=== PATIENT | male | born 1930 | race Caucasian/White ===

== ENCOUNTER → 2018-06-30 | Outpatient (CLI) | payer MEDICARE ==
[2018-06-30 16:27] LABS: HCT 43.8 % (39.0-53.0); HGB 14.3 gm/dL (13.0-17.5); MCH 29.5 pg (25.0-35.0); MCHC 32.7 g/dL (31.0-37.0); MCV 90.4 fL (80.0-100.0); Mean Platelet Volume 6.5; Platelet Count 112 k/uL (150-450); RBC 4.84 m/uL (4.30-5.90); RDW 13.3 % (11.5-15.5); WBC 5.9 k/uL (3.8-10.6)
[2018-06-30 16:30] LABS: Appearance,Urine Clear (Clear); Bilirubin,Urine Negative (Negative); Blood,Urine Negative (Negative); Color,Urine Yellow; Glucose,Urine (UA) Negative (Negative); Ketones,Urine Negative (Negative); Leukocyte Esterase,Urine Negative (Negative); Nitrite,Urine Negative (Negative); PH, Urine 6.5 (5.0-8.0); Protein,Urine Negative (Negative); Urobilinogen,Urine <2.0 mg/dL (<2.0)
[2018-06-30 16:33] LABS: INR 1.1 (<1.2); Partial Thromboplastin Time 24.9 sec (22.0-30.0); Prothrombin Time 10.7 sec (9.0-12.0)
[2018-06-30 16:38] LABS: Albumin 4.1 g/dL (3.5-5.0); Total Bilirubin 1.1 mg/dL (0.2-1.3); Total Protein 7.6 g/dL (6.3-8.2)
== END | disposition home or self-care (01) ==
LOC: LABPAT 15:45
PROVIDERS: ATTEND Orthopaedic Surgery
DX: Z01.818 Encounter for other preprocedural examination (principal); Z01.812 Encounter for preprocedural laboratory examination; Z79.01 Long term (current) use of anticoagulants
CPT/HCPCS: 36415; 80053; 81003; 85027; 85610; 85730; 87070; 93005

== ENCOUNTER 2018-07-13 06:05 | Inpatient (IN) | payer MEDICARE ==
[2018-07-01 09:59] VITALS: BMI 30.7
[~2018-07-13 06:05] MED LIST: ACETAMINOPHEN TAB 500 MG TAB PO ONE; HYDROmorphone 0.5 MG/0.5 ML SYRINGE IVP PRN; MELOXICAM 7.5 MG TAB PO ONE; MIDAZOLAM 2 MG/2 ML VIAL IV PRN; ONDANSETRON 4 MG/2 ML VIAL IVP ONE; Pre Op ABX Message 1 EACH MISC MISCELLANE ONE; ROPIVACAINE 246.25 MG, EPINEPHrine 0.5 MG, KETOROLAC 30 MG, cloNIDine HCL/PF 80 MCG, WA... MISCELLANE ONE; TRANEXAMIC ACID 1,000 MG in SODIUM CHLORIDE 0.9% 50 ML IVPB ONE
[2018-07-13] MEDS: LACTATED RINGERS 1,000 ML IV SCH (06:40)
[2018-07-13] MEDS ORDERED: ONDANSETRON 4 MG/2 ML VIAL IVP PRN (06:57)
[2018-07-13] MEDS ORDERED: MAGNESIUM HYDROXIDE 2,400 MG/10 ML CUP PO PRN (06:57)
[2018-07-13] MEDS ORDERED: DIAZEPAM 5 MG TAB PO PRN (06:57)
[2018-07-13] MEDS ORDERED: NALOXONE 0.4 MG/ML 1 ML VIAL IV PRN (06:57)
[2018-07-13] MEDS ORDERED: HYDROcodone/APAP 5-325MG 1 EACH TAB PO PRN ×2 (06:57)
[2018-07-13] MEDS ORDERED: BISACODYL 10 MG SUPP RECTAL PRN (06:57)
[2018-07-13] MEDS ORDERED: NA PHOS,M-B/NA PHOS,DI-BA 133 ML ENEMA RECTAL PRN (06:57)
[2018-07-13] MEDS ORDERED: HYDROmorphone 1 MG/ML 1 ML SYRINGE IVP PRN ×3 (06:57)
[2018-07-13] MEDS ORDERED: diphenhydrAMINE 50 MG/ML 1 ML VIAL ONE (07:09)
[2018-07-13] MEDS ORDERED: fentaNYL (PF) 50 MCG/ML 2 ML AMP ONE (07:09)
[2018-07-13] MEDS ORDERED: SODIUM CHLORIDE 0.9% 100 ML BAG ONE (07:09)
[2018-07-13] MEDS ORDERED: MIDAZOLAM 2 MG/2 ML VIAL ONE (07:09)
[2018-07-13] MEDS ORDERED: TRANEXAMIC ACID 1,000 MG/10 ML VIAL ONE (07:09)
[2018-07-13] MEDS ORDERED: ceFAZolin 1,000 MG VIAL IVPB ONE (07:28)
[2018-07-13] MEDS ORDERED: ceFAZolin 3,000 MG in SODIUM CHLORIDE 0.9% IRRIGATIO 3,000 ML IRRIGATION ONE (07:43)
--- NOTE | 2018-07-13 08:29 | P.OP ---
Date of Procedure: 07/13/18 Preoperative Diagnosis: Polyethylene failure right total knee Postoperative Diagnosis: Polyethylene failure right total knee Procedure(s) Performed: Revision right total knee with polyethylene exchange Implants: [place] Dur[place] large 9 mm AP lipped tibial insert Anesthesia: spinal Surgeon: Yuniel Lizama Manager Intensive Care #1: Winter Crockett Estimated Blood Loss (ml): 50 Pathology: other (Cultures 2) Condition: stable Disposition: PACU Indications for Procedure: This is an 88-year-old gentleman that has had a right total knee arthroplasty performed at another hospital approximately 17 years ago. X-rays demonstrate polyethylene wear patient is a potential pain and effusion secondary to this polyethylene wear. After discussing the surgical nonsurgical treatment options with him and his family at length, I recommended a revision of his total knee with polyethylene exchange. Informed consent was obtained. Operative Findings: The operative findings are consistent with significant polyethylene failure of the tibial component. 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 There is no evidence of infection. Description of Procedure: Patient was seen in the preoperative area consent was reviewed and operative site was marked with a skin marker. An adductor canal pain catheter was placed by anesthesia in the preoperative area. Patient was then brought to the operating room and given preoperative antibiotics intravenously. A spinal anesthetic was administered by the anesthesia department. A tourniquet was placed on the upper thigh and the lower extremity was prepped and draped in usual sterile fashion. A gram of transexamic acid was given. A universal timeout was then performed which confirmed the patient's name, surgical site, ALLERGIES, and consent. The lower extremity was then exsanguinated and tourniquet was inflated to 250 mmHg. A standard and anterior midline approach to the knee was performed. The skin and subcutaneous tissue was dissected down to the patellar tendon, with the prior scar being excised.. A medial parapatellar arthrotomy was then performed. A large effusion was encountered, which was clear and yellow in appearance. This was cultured 2. The knee was then extended, the patellar was everted, and the knee was again flexed. There is noted to be a large amount of black staining of the synovium, consistent with significant metallosis. There is also multiple pieces of polyethylene floating about the knee. Using a Rominger, a large synovectomy was performed to remove all of the black stained metallosis. Attention was then directed to the tibia. Using a small osteotome, the polyethylene was easily removed from the tibial component. On inspection, the polyethylene was found to be extensively damaged completely worn and the posterior condyle area. Next, the femoral tibial components were inspected and found to be well fixed. The patellar component was also inspected, found have some moderate polyethylene wear, but the component was well fixed left in place. The trial 9 mm insert was then placed, and the knee was then taken through range of motion and found to be stable. The trial was then removed. After a thorough debridement of the synovium, the knee was then irrigated with pulsatile lavage. The posterior structures were injected with the ropivacaine solution. The knee was also irrigated with Irrisept solution. The component was then opened. A new polyethylene was then inserted into the tibial component and component locking was confirmed. The remaining soft tissues were then injected with a ropivacaine solution, which consisted of 246.25 mg of ropivacaine, 0.5 mg of epinephrine, 30 mg of Toradol, 80 g of clonidine, and 48.45 mL of sterile water, for a total of 100 mL of fluid injected. After the cemented hardened. The tourniquet was released, and hemostasis was obtained. A second gram of transexamic acid was given. The knee was again irrigated. The knee was again taken through range of motion and found to be stable throughout all range of motion of 0-130, and the patella tracked normally. The fascia was then closed with #2 strata fix suture. The subcutaneous tissue was closed with 3-0 Vicryl and 3-0 strata fix. Dermabond glue was used for the skin and placed with the knee in flexion. The patient was placed in a sterile silver dressing. Patient was then transferred to recovery room in stable condition. The assistant restaurant general manager STORM Castellano was required due the complexity surgery and the need for a skilled surgical instrument maker. She assisted in positioning, draping, retraction, and closure of the wound.
[2018-07-13] MEDS ORDERED: ROPIVACAINE 1,100 MG, SODIUM CHLORIDE 0.9% 330 ML MISCELLANE PRN ×2 (08:44)
--- NOTE | 2018-07-13 09:25 | XR ---
Right knee Limited HISTORY: Status post right knee arthroplasty 2 views of the right knee Correlation to prior exam 07/11/2018 There is a metallic density which is needle-like just inferior to the patella on the lateral exam ritika suring 1 cm x 1 mm, not localized on the frontal exam. Frontal view is rotated. Alignment appears sat isfactory status post knee arthroplasty. Lucency in the soft tissues compatible with postop state. Th ere are vascular calcifications present. Small ossific densities present in the suprapatellar locatio n are noted. Bone mineralization is reduced. There may be a Simmons's cyst, soft tissue prominence in t he popliteal fossa. IMPRESSION: Orthopedic follow-up. Foreign body as described inferior to the patella. Results relayed to Winter telephonically at the time of interpretation. Additional findings above. A Yellow level critical message alert has been initiated for Bibiana Duarte DO via the [employer] Critical Results System on 07/13/2018 9:18 AM. This message alert has been sent to Bibiana abraham DO via the preferences provided by the clinician for the receipt of Radiology Critical Findings. Message ID [id number].
[2018-07-13] MEDS: SODIUM CHLORIDE 0.9% 1,000 ML IV SCH ×3 (09:34→18:07)
--- NOTE | 2018-07-13 11:41 | P.CONS ---
History of Present Illness - Reason for Consult Consult date: 07/13/18 Medical management Requesting physician: Yuniel Lizama - Chief Complaint Medical management - History of Present Illness The patient is a 88-year-old male with a past medical history of essential hypertension, chronic kidney disease, congestive heart failure unknown type, chronic atrial fibrillation previously on anticoagulation was currently admitted to the orthopedic service under Dr. Lizama and is currently postop day #0 status post revision of right total knee with polyethylene exchange secondary to polyethylene failure. Patient is doing well , denies any chest pain or shortness of breath. Reports that he stopped his eliquis7 days prior to having his surgery done today. Patient reports his pain is adequately controlled, plans to go home with his son. Review of Systems Pertinent positives per HPI, all other review of systems are negative Past Medical History Past Medical History: Atrial Fibrillation, Coronary Artery Disease (CAD), Cancer , Heart Failure, GERD/Reflux, Hearing Disorder / Deafness, Hypertension, Liver Disease, Osteoarthritis (OA), Prostate Disorder Additional Past Medical History / Comment(s): HX KIDNEY, PROSTATE, SKIN CANCERS. HEPATITIS, TREATED. SHORT OF BREATH W/ ACTIVITY. RT TOTAL KNEE PROBLEMS. EDEMA LEGS. HAD RECENT STRESS TEST, TO HAVE PULMONARY TESTING PRE- OP. History of Any Multi-Drug Resistant Organisms: None Reported Past Surgical History: Appendectomy, Heart Catheterization With Stent, Joint Replacement, Orthopedic Surgery, Prostate Surgery Additional Past Surgical History / Comment(s): Stent placed in right ventricle approximately 15 years ago. Right kidney removed around 1981. FREDRICK TOTAL KNEES. CATARACTS REMOVED. LOOP MONITOR. TOE JOINT REPLACED. Past Anesthesia/Blood Transfusion Reactions: No Reported Reaction Date of Last Stent Placement:: 2002 Past Psychological History: No Psychological Hx Reported Smoking Status: Never smoker Past Alcohol Use History: None Reported Past Drug Use History: None Reported - Past Family History Father Family Medical History: Cancer Brother(s) Family Medical History: Cancer Medications and Allergies Home Medications Medication Instructions Recorded Confirmed Type Apixaban [Eliquis] 2.5 mg PO BID 08/16/16 07/13/18 History Isosorbide Dinitrate [Isordil] 10 mg PO AC-TID 08/16/16 07/13/18 History Lactulose 20 gm PO Q6H 08/16/16 07/13/18 History Nystatin 100,000 Unit/ml Susp 5 ml PO Q6H PRN 08/16/16 07/13/18 History [Mycostatin Oral Susp] Sennosides [Senna] 8.6 mg PO BID 08/16/16 07/13/18 History Tamsulosin [Flomax] 0.4 mg PO DAILY 08/16/16 07/13/18 History hydrALAZINE HCL [Apresoline] 25 mg PO TID #0 08/18/16 07/13/18 Rx Diltiazem HCl [Diltiazem 24Hr ER] 120 mg PO DAILY 07/01/18 07/13/18 History Fluticasone Propionate [Flonase 1 spray EA NOSTRIL DAILY 07/01/18 07/13/18 History Allergy Relief] Furosemide [Lasix] 40 mg PO BID 07/01/18 07/13/18 History Lisinopril [Zestril] 10 mg PO BID 07/01/18 07/13/18 History Metoprolol Succinate (ER) [Toprol 100 mg PO DAILY 07/01/18 07/13/18 History Xl] Potassium Chloride ER [K-Dur 20] 20 meq PO BID 07/01/18 07/13/18 History Aspirin 81 mg PO DAILY 07/13/18 07/13/18 History Allergies Allergy/AdvReac Type Severity Reaction Status Date / Time ciprofloxacin [From Cipro] Allergy Unknown Verified 07/13/18 11:20 Penicillins Allergy Unknown Verified 07/13/18 11:20 Physical Exam Vitals: Vital Signs Temp Pulse Pulse Resp BP BP Pulse Ox 07/13/18 09:23 81 16 95/52 98 07/13/18 09:08 98.0 F 83 16 94/62 98 07/13/18 08:53 83 16 97/50 97 07/13/18 08:38 98.0 F 82 16 94/53 95 07/13/18 07:02 87 16 101/56 95 07/13/18 06:23 97.9 F 102 H 16 122/58 98 Intake and Output 07/12/18 07/13/18 07/13/18 22:59 06:59 14:59 Intake Total 200 701 Output Total 290 Balance 200 411 Intake: IV 200 701 Output: Urine 240 Estimated Blood Loss 50 Other: # Voids 1 Weight 99.79 kg Constitutional: No acute distress, conversant, pleasant Eyes: Anicteric sclerae, moist conjunctiva, no lid-lag, PERRLA ENMT: NC/AT,Oropharynx clear, no erythema, exudates Neck:Supple, FROM, no masses, or JVD, No carotid bruits; No thyromegaly Lungs: Clear to auscultation, Clear to percussion, Normal respiratory effort, no accessory muscle use Cardiovascular: Irregularly irregular No murmurs, gallops, or rubs no peripheral edema Abdominal: Soft Nontender, nom distended, no guarding, no rebound or rigidity, Normoactive bowel sounds No hepatomegaly, No splenomegaly, No palpable mass No abdominal wall hernia noted Skin: Normal temperature, tone, texture, turgor, No induration No subcutaneous nodules, No rash, lesions, No ulcers Extremities:No digital cyanosis No clubbing, Pedal pulses intact and symmetrical Radial pulses intact and symmetrical Normal gait and station, No calf tenderness Psychiatric: Alert and oriented to person, place and time, Appropriate affect Intact judgement Neuro: Muscles Strength 5/5 in all 4 extremities, Sensation to light touch grossly present throughout, Cranial nerves II-XII grossly intact. No focal sensory deficits Assessment and Plan (1) CAD (coronary artery disease) Current Visit: No Status: Acute Code(s): I25.10 - ATHSCL HEART DISEASE OF [place] CORONARY ARTERY W/O ANG PCTRS SNOMED Code(s): 02362630 (2) Chronic atrial fibrillation Current Visit: No Status: Acute Code(s): I48.2 - CHRONIC ATRIAL FIBRILLATION SNOMED Code(s): 585695944 (3) HTN (hypertension) Current Visit: No Status: Acute Code(s): I10 - ESSENTIAL (PRIMARY) HYPERTENSION SNOMED Code(s): 60591575 (4) Congestive heart failure (CHF) Current Visit: Yes Status: Acute Code(s): I50.9 - HEART FAILURE, UNSPECIFIED SNOMED Code(s): 06147120 Plan: The patient is admitted to the orthopedic service postop day #0 after having a total knee revision with exchange of polyethylene secondary to failure. Patient appears medically stable we'll resume all his home medications, patient has a history of chronic A. fib and was previously on anticoagulation with eliquis which was held preoperatively, plan to resume anticoagulation later today and continue to follow his clinical. Patient is clinically euvolemic without any indications of CHF exacerbation at this point Anticipated discharge 1-2 days
[2018-07-13] MEDS ORDERED: NYSTATIN 100,000 UNIT/ML SUSP 500,000 UNIT/5 ML CUP PO PRN (11:45)
[2018-07-13] MEDS ORDERED: CLINDAMYCIN 900 MG in DEXTROSE 5% IN WATER 50 ML IVPB SCH ×2 (12:00)
[2018-07-13] MEDS: LACTULOSE 20 GM/30 ML CUP PO SCH ×2 (12:23→18:07)
[2018-07-13] MEDS: ISOSORBIDE DINITRATE 10 MG TAB PO SCH ×2 (12:23→15:37)
[2018-07-13] MEDS ORDERED: SODIUM CHLORIDE 0.9% 500 ML IV ONE (12:36)
--- NOTE | 2018-07-13 13:51 | P.ONQ ---
Anesthesiology Proc Note - PNB - Peripheral Nerve Block Performed Right Adductor Canal Infusion Time Out Performed: Yes Procedure Start Time: 06:53 Procedure Stop Time: 07:04 Indication: Acute Post-Operative Pain, Requested by physician Sedation Type: Sedate with meaningful contact maintained Preparation: Sterile Dressing Position: Supine Catheter: Indwelling Needle Types: On-Q Needle Size: 50mm (2") Needle Gauge: 21 Technique: Ultrasound Injectate: 0.5% Ropivacaine (see comment for volume) (ropi .5% 20cc) Blood Aspirated: No Pain Paresthesia on Injection Noted: No Resistance on Injection: Normal Events: Uneventful and Well Tolerated
[2018-07-13] MEDS: FUROSEMIDE 40 MG TAB PO SCH (15:37)
[2018-07-13] MEDS: ceFAZolin IN SWFI 2 GM/20 ML SYRINGE IVP SCH (15:50)
[2018-07-13] MEDS: POTASSIUM CHLORIDE ER 20 MEQ TAB.ER PO SCH (20:53)
[2018-07-13] MEDS: SENNOSIDES-DOCUSATE SODIUM 1 EACH TAB PO SCH (20:53)
[2018-07-13] MEDS ORDERED: APIXABAN 2.5 MG TABLET PO SCH (21:00)
[2018-07-14] MEDS: LACTULOSE 20 GM/30 ML CUP PO SCH ×4 (00:14→18:55)
[2018-07-14] MEDS: ceFAZolin IN SWFI 2 GM/20 ML SYRINGE IVP SCH (00:16)
[2018-07-14 02:08] VITALS: RESP 16
--- NOTE | 2018-07-14 05:51 | P.PN ---
Progress Note - Text Progress Note Date: 07/14/18 The patient is doing well status post total knee replacement. The patient got confused overnight and pulled his On-Q catheter out. His pain is 2 out of 10 this morning. You may use Toradol if there is no contraindication for pain control.
[2018-07-14 07:48] LABS: Basophils % (A) 0 %; Eosinophils # (A) 0.1 k/uL (0-0.7); Eosinophils % (A) 1 %; HCT 38.6 % (39.0-53.0); HGB 12.2 gm/dL (13.0-17.5); Lymphocytes # (A) 0.5 k/uL (1.0-4.8); Lymphocytes % (A) 7 %; MCH 28.9 pg (25.0-35.0); MCHC 31.6 g/dL (31.0-37.0); MCV 91.5 fL (80.0-100.0); Mean Platelet Volume 6.9; Monocytes # (A) 0.6 k/uL (0-1.0); Monocytes % (A) 9 %; Neutrophils # (A) 5.9 k/uL (1.3-7.7); Neutrophils % (A) 82 %; Platelet Count 112 k/uL (150-450); RBC 4.22 m/uL (4.30-5.90); RDW 13.3 % (11.5-15.5); WBC 7.2 k/uL (3.8-10.6)
[2018-07-14] MEDS: LACTATED RINGERS 1,000 ML IV SCH (07:48)
--- NOTE | 2018-07-14 09:11 | P.PN ---
Subjective Progress Note Date: 07/14/18 This is an 88-year-old male who is status post revision right total knee arthroplasty with polyethylene exchange. This is postoperative pain #1. Patient is seen and evaluated at bedside with Dr. Yuniel Lizama. Patient states that his pain is very well controlled today. Patient denies any fever/ chills, numbness, weakness, tingling, abdominal pain, shortness of breath or chest pain. Objective - Vital Signs Vital signs: Vital Signs Temp 98.2 F 07/14/18 07:00 Pulse 97 07/14/18 07:00 Resp 16 07/14/18 07:00 BP 134/71 07/14/18 07:00 Pulse Ox 93 L 07/14/18 07:00 Intake & Output 07/13/18 07/14/18 07/14/18 18:59 06:59 18:59 Intake Total 701 Output Total 840 401 Balance -139 -401 Weight 99.79 kg Intake: IV 701 Output: Urine 790 400 Straight 550 400 Stool 1 Estimated Blood Loss 50 Other: # Voids 1 1 - Exam Vital signs are stable. Patient is in no acute distress and is alert and oriented 3. Calf is soft and nontender to palpation. Dressing is clean, dry, and intact. Patient has full foot and ankle motion without pain or difficulty. Neurovascular status and circulatory status are intact. - Labs CBC & Chem 7: 07/14/18 06:48 Labs: Abnormal Lab Results - Last 24 Hours (Table) 07/14/18 Range/Units 06:48 RBC 4.22 L (4.30-5.90) m/uL Hgb 12.2 L (13.0-17.5) gm/dL Hct 38.6 L (39.0-53.0) % Plt Count 112 L (150-450) k/uL Lymphocytes # 0.5 L (1.0-4.8) k/uL Microbiology - Last 24 Hours (Table) 07/13/18 07:51 Gram Stain - Preliminary Knee - Right Wound Culture - Preliminary 07/13/18 07:50 Gram Stain - Preliminary Knee - Right Wound Culture - Preliminary 07/13/18 07:50 Anaerobic Culture - Preliminary Knee - Right 07/13/18 07:51 Anaerobic Culture - Preliminary Knee - Right Assessment and Plan (1) Status post revision of total replacement of right knee Current Visit: Yes Status: Acute Code(s): Z96.651 - PRESENCE OF RIGHT ARTIFICIAL KNEE JOINT SNOMED Code(s): 196203619572588 Plan: #1 Continue with routine postoperative care, leave dressing in place for ten days. #2 Anticoagulation with aspirin. #3 Physical therapy and CPM today. #4 Appreciate input from medicine. #5 Anticipate discharge home with home care likely tomorrow.
[2018-07-14] MEDS: APIXABAN 2.5 MG TABLET PO SCH ×2 (09:32→20:33)
[2018-07-14] MEDS: FUROSEMIDE 40 MG TAB PO SCH ×2 (09:32→16:57)
[2018-07-14] MEDS: METOPROLOL SUCCINATE (ER) 100 MG TAB.ER.24H PO SCH (09:32)
[2018-07-14] MEDS: ASPIRIN 81 MG PO SCH (09:32)
[2018-07-14] MEDS: POTASSIUM CHLORIDE ER 20 MEQ TAB.ER PO SCH ×2 (09:32→20:34)
[2018-07-14] MEDS: hydrALAZINE HCL 25 MG TAB PO SCH ×2 (09:33→09:57)
[2018-07-14] MEDS: LISINOPRIL 10 MG TAB PO SCH ×2 (09:33→20:33)
[2018-07-14] MEDS: TAMSULOSIN 0.4 MG CAP.ER.24H PO SCH (09:33)
[2018-07-14] MEDS: ISOSORBIDE DINITRATE 10 MG TAB PO SCH ×3 (09:58→16:57)
[2018-07-14] MEDS: DILTIAZEM CD 120 MG CAP.ER.24H PO SCH (10:00)
--- NOTE | 2018-07-14 12:38 | P.PN ---
Subjective Progress Note Date: 07/14/18 Patient sitting up at bedside, doing well postop day #1 s/p right total knee replacement with polyethylene exchange, patient had transient episode of confusion pulling at his On Q catheter overnight, likely . Does not appear confused this morning, blood pressure much more stable today. Objective - Vital Signs Vital signs: Vital Signs Temp 98.2 F 07/14/18 07:00 Pulse 97 07/14/18 07:00 Resp 16 07/14/18 07:00 BP 134/71 07/14/18 07:00 Pulse Ox 93 L 07/14/18 07:00 Intake & Output 07/13/18 07/14/18 07/14/18 18:59 06:59 18:59 Intake Total 701 240 Output Total 840 401 Balance -139 -401 240 Weight 99.79 kg Intake: IV 701 Oral 240 Output: Urine 790 400 Straight 550 400 Stool 1 Estimated Blood Loss 50 Other: # Voids 1 1 - Exam Constitutional: No acute distress, conversant, pleasant Eyes: Anicteric sclerae, moist conjunctiva, no lid-lag, PERRLA ENMT: NC/AT,Oropharynx clear, no erythema, exudates Neck:Supple, FROM, no masses, or JVD, No carotid bruits; No thyromegaly Lungs: Clear to auscultation, Clear to percussion, Normal respiratory effort, no accessory muscle use Cardiovascular: Irregularly irregular, No murmurs, gallops, or rubs no peripheral edema Abdominal: Soft Nontender, nom distended, no guarding, no rebound or rigidity, Normoactive bowel sounds No hepatomegaly, No splenomegaly, No palpable mass No abdominal wall hernia noted Skin: Normal temperature, tone, texture, turgor, No induration No subcutaneous nodules, No rash, lesions, No ulcers Extremities:No digital cyanosis No clubbing, Pedal pulses intact and symmetrical Radial pulses intact and symmetrical Normal gait and station, No calf tenderness Psychiatric: Alert and oriented to person, place and time, Appropriate affect Intact judgement Neuro: Muscles Strength 5/5 in all 4 extremities, Sensation to light touch grossly present throughout, Cranial nerves II-XII grossly intact. No focal sensory deficits - Labs CBC & Chem 7: 07/14/18 06:48 Labs: Abnormal Lab Results - Last 24 Hours (Table) 07/14/18 Range/Units 06:48 RBC 4.22 L (4.30-5.90) m/uL Hgb 12.2 L (13.0-17.5) gm/dL Hct 38.6 L (39.0-53.0) % Plt Count 112 L (150-450) k/uL Lymphocytes # 0.5 L (1.0-4.8) k/uL Microbiology - Last 24 Hours (Table) 07/13/18 07:50 Gram Stain - Preliminary Knee - Right Wound Culture - Preliminary 07/13/18 07:51 Gram Stain - Preliminary Knee - Right Wound Culture - Preliminary 07/13/18 07:50 Anaerobic Culture - Preliminary Knee - Right 07/13/18 07:51 Anaerobic Culture - Preliminary Knee - Right Assessment and Plan (1) CAD (coronary artery disease) Narrative/Plan: * Currently stable patient is asymptomatic denies any chest pain or shortness of breath at this time Current Visit: No Status: Acute Code(s): I25.10 - ATHSCL HEART DISEASE OF [place] CORONARY ARTERY W/O ANG PCTRS SNOMED Code(s): 88611466 (2) Chronic atrial fibrillation Narrative/Plan: * Stable A. fib with controlled ventricular rate * Continue current Cardizem, Toprol-XL and Eliquis Current Visit: No Status: Acute Code(s): I48.2 - CHRONIC ATRIAL FIBRILLATION SNOMED Code(s): 134740862 (3) HTN (hypertension) Narrative/Plan: * Patient's blood pressure much better today no longer hypotensive after receiving a liter of fluids * Continue and hypertensive regimen will discontinue hydralazine Current Visit: No Status: Acute Code(s): I10 - ESSENTIAL (PRIMARY) HYPERTENSION SNOMED Code(s): 48175862 (4) Congestive heart failure (CHF) Narrative/Plan: * Stable euvolemic exam without any suspicion of acute exacerbation at this time Current Visit: Yes Status: Acute Code(s): I50.9 - HEART FAILURE, UNSPECIFIED SNOMED Code(s): 61039714 Plan: Patient doing well, appears stable, will defer pain management to primary team. Can likely be discharged home tomorrow. We'll continue to follow with you
[2018-07-14] MEDS ORDERED: HYDROmorphone 2 MG TAB PO PRN ×3 (14:51→14:52)
[2018-07-14] MEDS: SENNOSIDES-DOCUSATE SODIUM 1 EACH TAB PO SCH (20:33)
[2018-07-15] MEDS: LACTULOSE 20 GM/30 ML CUP PO SCH ×3 (00:53→14:49)
[2018-07-15] MEDS: LACTATED RINGERS 1,000 ML IV SCH (05:14)
[2018-07-15] MEDS: SODIUM CHLORIDE 0.9% 1,000 ML IV SCH (05:15)
--- NOTE | 2018-07-15 08:36 | P.DS ---
Providers Date of admission: 07/13/18 06:05 Expected date of discharge: 07/15/18 Attending physician: Yuniel Lizama Consults: 07/13/18 06:57 Consult Physician Routine Consulting Provider: Bibiana Duarte Consult Reason/Comments: medical management Do you want consulting provider notified?: Yes Primary care physician: Physician Nonstaff - Discharge Diagnosis(es) (1) Status post revision of total replacement of right knee Current Visit: Yes Status: Acute Hospital Course: This is a 88-year-old male with a history of right total knee arthroplasty ~17 years ago. The patient presents for evaluation and x-rays show evidence for polyethylene wear. After discussion and consideration patient elects to proceed with revision right total knee arthroplasty with polyethylene exchange. The patient is seen preoperatively by Dr. Lizama and medically cleared for surgery by their primary care physician. Patient is admitted to [facility] on 07/13/2018 for revision right total knee arthroplasty with polyethylene exchange. The procedures performed without complication or sequelae. The patient is doing well postoperatively. Labs and vital signs are stable on day of discharge. On day of discharge patient's knee incision is healing well. There is minimal erythema. There is no drainage noted at this time. There is minimal soft tissue swelling to the knee. Patient has full foot and ankle motion without difficulty or pain. Neurovascular status to the right lower extremity is intact. Patient is discharged home in good condition. Please see med rec for accurate list of home medications. Plan - Discharge Summary Discharge Rx Participant: Yes New Discharge Prescriptions: New Apixaban [Eliquis] 2.5 mg PO BID #30 tab HYDROcodone/APAP 5-325MG [[place] 5-325] 1 - 2 tab PO Q4-6H PRN #84 tab PRN Reason: Pain Sennosides [Senokot] 1 tab PO BID #60 tablet No Action Nystatin 100,000 Unit/ml Susp [Mycostatin Oral Susp] 5 ml PO Q6H PRN PRN Reason: Mouth Irritation Apixaban [Eliquis] 2.5 mg PO BID Isosorbide Dinitrate [Isordil] 10 mg PO AC-TID Tamsulosin [Flomax] 0.4 mg PO DAILY Sennosides [Senna] 8.6 mg PO BID Lactulose 20 gm PO Q6H hydrALAZINE HCL [Apresoline] 25 mg PO TID #0 Diltiazem HCl [Diltiazem 24Hr ER] 120 mg PO DAILY Fluticasone Propionate [Flonase Allergy Relief] 1 spray EA NOSTRIL DAILY Furosemide [Lasix] 40 mg PO BID Lisinopril [Zestril] 10 mg PO BID Metoprolol Succinate (ER) [Toprol Xl] 100 mg PO DAILY Potassium Chloride ER [K-Dur 20] 20 meq PO BID Aspirin 81 mg PO DAILY Discharge Medication List Apixaban [Eliquis] 2.5 mg PO BID 08/16/16 [History] Isosorbide Dinitrate [Isordil] 10 mg PO AC-TID 08/16/16 [History] Lactulose 20 gm PO Q6H 08/16/16 [History] Nystatin 100,000 Unit/ml Susp [Mycostatin Oral Susp] 5 ml PO Q6H PRN 08/16/16 [ History] Sennosides [Senna] 8.6 mg PO BID 08/16/16 [History] Tamsulosin [Flomax] 0.4 mg PO DAILY 08/16/16 [History] hydrALAZINE HCL [Apresoline] 25 mg PO TID #0 08/18/16 [Rx] Diltiazem HCl [Diltiazem 24Hr ER] 120 mg PO DAILY 07/01/18 [History] Fluticasone Propionate [Flonase Allergy Relief] 1 spray EA NOSTRIL DAILY [History] Furosemide [Lasix] 40 mg PO BID 07/01/18 [History] Lisinopril [Zestril] 10 mg PO BID 07/01/18 [History] Metoprolol Succinate (ER) [Toprol Xl] 100 mg PO DAILY 07/01/18 [History] Potassium Chloride ER [K-Dur 20] 20 meq PO BID 07/01/18 [History] Aspirin 81 mg PO DAILY 07/13/18 [History] Apixaban [Eliquis] 2.5 mg PO BID #30 tab 07/15/18 [Rx] HYDROcodone/APAP 5-325MG [[place] 5-325] 1 - 2 tab PO Q4-6H PRN #84 tab 07/15/18 [ Rx] Sennosides [Senokot] 1 tab PO BID #60 tablet 07/15/18 [Rx] Follow up Appointment(s)/Referral(s): [facility], [NON-STAFF] - Yuniel Lizama DO [Doctor of Osteopathic Medicine] - 2 Weeks Ambulatory/Diagnostic Orders: Continuous Passive Motion (CPM) Machine [DME.AMB1] Time Frame: 3 Weeks, Location : None Selected Activity/Diet/Wound Care/Special Instructions: [facility] will be able to transfer services when patient goes home. They will go through the [place] office at that time. Please call [facility] once home to arrange delivery of CPM: [phone] Weightbearing as tolerated with a walker CPM 5-6h daily Leave dressing intact. May be removed by home care nurse in 10 days. May shower with dressing on. Please call [facility] with any questions or concerns, . Discharge Disposition: HOME WITH HOME HEALTH SERVICES
[2018-07-15] MEDS: POTASSIUM CHLORIDE ER 20 MEQ TAB.ER PO SCH (10:13)
[2018-07-15] MEDS: METOPROLOL SUCCINATE (ER) 100 MG TAB.ER.24H PO SCH (10:13)
[2018-07-15] MEDS: APIXABAN 2.5 MG TABLET PO SCH (10:13)
[2018-07-15] MEDS: DILTIAZEM CD 120 MG CAP.ER.24H PO SCH (10:13)
[2018-07-15] MEDS: ISOSORBIDE DINITRATE 10 MG TAB PO SCH ×2 (10:13→15:14)
[2018-07-15] MEDS: ASPIRIN 81 MG PO SCH (10:13)
[2018-07-15] MEDS: LISINOPRIL 10 MG TAB PO SCH (10:13)
[2018-07-15] MEDS: TAMSULOSIN 0.4 MG CAP.ER.24H PO SCH (10:13)
[2018-07-15] MEDS: FUROSEMIDE 40 MG TAB PO SCH ×2 (10:14→15:13)
[2018-07-15 10:17] VITALS: BP 166/91; PULSE 94; TEMP 98.4
--- NOTE | 2018-07-15 12:54 | P.PN ---
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 Patient with no complaints Objective - Vital Signs Vital signs: Vital Signs Temp 98.4 F 07/15/18 07:00 Pulse 94 07/15/18 07:00 Resp 16 07/15/18 07:00 BP 166/91 07/15/18 07:00 Pulse Ox 98 07/15/18 07:00 Intake & Output 07/14/18 07/15/18 07/15/18 18:59 06:59 18:59 Intake Total 240 240 Balance 240 240 Intake: Oral 240 240 Other: Voiding Method Toilet Urinal # Voids 2 2 # Bowel Movements 1 - Exam Constitutional: No acute distress, conversant, pleasant Eyes: Anicteric sclerae, moist conjunctiva, no lid-lag, PERRLA ENMT: NC/AT,Oropharynx clear, no erythema, exudates Neck:Supple, FROM, no masses, or JVD, No carotid bruits; No thyromegaly Lungs: Clear to auscultation, Clear to percussion, Normal respiratory effort, no accessory muscle use Cardiovascular: Irregularly irregular, No murmurs, gallops, or rubs no peripheral edema Abdominal: Soft Nontender, nom distended, no guarding, no rebound or rigidity, Normoactive bowel sounds No hepatomegaly, No splenomegaly, No palpable mass No abdominal wall hernia noted Skin: Normal temperature, tone, texture, turgor, No induration No subcutaneous nodules, No rash, lesions, No ulcers Extremities:No digital cyanosis No clubbing, Pedal pulses intact and symmetrical Radial pulses intact and symmetrical Normal gait and station, No calf tenderness Psychiatric: Alert and oriented to person, place and time, Appropriate affect Intact judgement Neuro: Muscles Strength 5/5 in all 4 extremities, Sensation to light touch grossly present throughout, Cranial nerves II-XII grossly intact. No focal sensory deficits - Labs CBC & Chem 7: 07/14/18 06:48 Labs: Microbiology - Last 24 Hours (Table) 07/13/18 07:50 Gram Stain - Final Knee - Right Wound Culture - Final 07/13/18 07:51 Gram Stain - Final Knee - Right Wound Culture - Final Assessment and Plan (1) CAD (coronary artery disease) Narrative/Plan: * Currently stable patient is asymptomatic denies any chest pain or shortness of breath at this time Current Visit: No Status: Acute Code(s): I25.10 - ATHSCL HEART DISEASE OF [place] CORONARY ARTERY W/O ANG PCTRS SNOMED Code(s): 03357832 (2) Chronic atrial fibrillation Narrative/Plan: * Stable A. fib with controlled ventricular rate * Continue current Cardizem, Toprol-XL and Eliquis Current Visit: No Status: Acute Code(s): I48.2 - CHRONIC ATRIAL FIBRILLATION SNOMED Code(s): 455220973 (3) HTN (hypertension) Narrative/Plan: * Patient's blood pressure much better today no longer hypotensive BP actually more elevated * Continue and hypertensive regimen safe to resume hdralazine on discharge Current Visit: No Status: Acute Code(s): I10 - ESSENTIAL (PRIMARY) HYPERTENSION SNOMED Code(s): 43701786 (4) Congestive heart failure (CHF) Narrative/Plan: * Stable euvolemic exam without any suspicion of acute exacerbation at this time Current Visit: Yes Status: Acute Code(s): I50.9 - HEART FAILURE, UNSPECIFIED SNOMED Code(s): 58276344
[2018-07-15] MEDS ORDERED: hydrALAZINE HCL 25 MG TAB PO SCH (16:00)
== END 2018-07-15 15:46 | disposition home health service (06) | DRG 488 ==
LOC: 2ORMAIN 06:05 → 3SUR 08:29
PROVIDERS: ADMIT Orthopaedic Surgery; ATTEND Orthopaedic Surgery
PROC: 0SUV09Z Supplement Right Knee Joint, Tibial Surface with Liner, Open Approach (ICD-10-PCS; 2018-07-13)
PROC: 0SPC09Z Removal of Liner from Right Knee Joint, Open Approach (ICD-10-PCS; principal; 2018-07-13 07:00)
DX: T84.092A Other mechanical complication of internal right knee prosthesis, initial encounter (principal); F05 Delirium due to known physiological condition; I25.10 Atherosclerotic heart disease of native coronary artery without angina pectoris; I11.0 Hypertensive heart disease with heart failure; I48.2 Chronic atrial fibrillation; I50.9 Heart failure, unspecified; K75.9 Inflammatory liver disease, unspecified; G43.909 Migraine, unspecified, not intractable, without status migrainosus; G40.909 Epilepsy, unspecified, not intractable, without status epilepticus; K21.9 Gastro-esophageal reflux disease without esophagitis; H91.90 Unspecified hearing loss, unspecified ear; Z79.01 Long term (current) use of anticoagulants; Z79.82 Long term (current) use of aspirin; Z79.51 Long term (current) use of inhaled steroids; Z79.899 Other long term (current) drug therapy; Z85.828 Personal history of other malignant neoplasm of skin; Z85.46 Personal history of malignant neoplasm of prostate; Z85.528 Personal history of other malignant neoplasm of kidney; Z95.5 Presence of coronary angioplasty implant and graft; Z90.5 Acquired absence of kidney; Z87.442 Personal history of urinary calculi; Z95.0 Presence of cardiac pacemaker; Z96.652 Presence of left artificial knee joint; Z98.42 Cataract extraction status, left eye; Z98.41 Cataract extraction status, right eye; Z88.1 Allergy status to other antibiotic agents; Z88.0 Allergy status to penicillin
CPT/HCPCS: 85025; 87070; 87075; 87205; 99283

== ENCOUNTER → 2019-09-28 | Outpatient (CLI) | payer MEDICARE ==
[2019-09-28 16:48] LABS: Basophils % (A) 1 %; Eosinophils # (A) 0.1 k/uL (0-0.7); Eosinophils % (A) 2 %; HCT 35.7 % (39.0-53.0); HGB 11.8 gm/dL (13.0-17.5); Lymphocytes # (A) 0.9 k/uL (1.0-4.8); Lymphocytes % (A) 19 %; MCH 26.8 pg (25.0-35.0); MCHC 32.9 g/dL (31.0-37.0); MCV 81.3 fL (80.0-100.0); Monocytes # (A) 0.4 k/uL (0-1.0); Monocytes % (A) 8 %; Neutrophils # (A) 3.4 k/uL (1.3-7.7); Neutrophils % (A) 69 %; Platelet Count 206 k/uL (150-450); RBC 4.39 m/uL (4.30-5.90); WBC 4.9 k/uL (3.8-10.6)
[2019-09-28 18:47] LABS: Erythrocyte Sedimentation Rate 63 mm/hr (0-15)
== END | disposition home or self-care (01) ==
LOC: LABWHC1 15:34
PROVIDERS: ATTEND Orthopaedic Surgery
DX: M25.561 Pain in right knee (principal); I51.9 Heart disease, unspecified; N18.9 Chronic kidney disease, unspecified; T84.11 Breakdown (mechanical) of internal fixation device of bones of limb; Z96.651 Presence of right artificial knee joint; Z47.1 Aftercare following joint replacement surgery; Z85.9 Personal history of malignant neoplasm, unspecified
CPT/HCPCS: 36415; 85025; 85652